=== PATIENT | male | born 1990 | race Hispanic/Latino ===

== ENCOUNTER 2018-10-08 03:24 | Emergency (ER) | payer OTHER ==
[2018-10-08 03:37] VITALS: TEMP 98
--- NOTE | 2018-10-08 04:47 | ED PDOC ---
HPI: Trauma/Fall - HPI Time Seen by Provider: 10/08/18 03:38 Chief Complaint (Nursing): Trauma Chief Complaint (Provider): Trauma History Per: Patient History/Exam Limitations: no limitations Onset/Duration Of Symptoms: Hrs Injury Occurred (Timing): Just Before Arrival Additional Complaint(s): 28 y/o male with no significant PMHx presents to the ED for evaluation of lower extremity pain s/p fall. Patient states he was at work, working on a ladder about 5 to 6 feet above ground when he accidentally lost his balance and fell landing on the heels of his feet. Patient reports he did not land on his back and he did not sustain a head injury. Patient only complaining of pain to the bilateral heels and upper back pain. Patient notes he was able to ambulate after fall. Otherwise, patient additionally denies pelvic pain. PMD: no provider Past Medical History Vital Signs: Last Vital Signs Temp 98 F 10/08/18 03:31 Pulse 85 10/08/18 03:31 Resp 17 10/08/18 03:31 BP 164/120 H 10/08/18 03:31 Pulse Ox 98 10/08/18 03:31 Primary Care Provider: FAMILY PROVIDER,NO - Allergies Allergies/Adverse Reactions: Allergies Allergy/AdvReac Type Severity Reaction Status Date / Time sulfamethoxazole Allergy RASH Verified 10/08/18 03:37 [From Bactrim] trimethoprim [From Bactrim] Allergy RASH Verified 10/08/18 03:37 Review of Systems ROS Statement: Except As Marked, All Systems Reviewed And Found Negative Musculoskeletal: Positive for: Back Pain (upper), Foot Pain (heel pain) Physical Exam - Reviewed Nursing Documentation Reviewed: Yes Vital Signs Reviewed: Yes - Physical Exam Appears: Positive for: No Acute Distress Head Exam: Positive for: ATRAUMATIC, NORMOCEPHALIC Skin: Positive for: Normal Color, Warm, Dry Eye Exam: Positive for: Normal appearance, EOMI, PERRL Neck: Positive for: Normal, Painless ROM Cardiovascular/Chest: Positive for: Regular Rate, Rhythm. Negative for: Murmur Respiratory: Positive for: Normal Breath Sounds. Negative for: Respiratory Distress Gastrointestinal/Abdominal: Positive for: Normal Exam Back: Positive for: Normal Inspection. Negative for: L CVA Tenderness, R CVA Tenderness, Vertebral Tenderness Extremity: Positive for: Normal ROM, Tenderness (Mild tenderness to palpation in the bilateral heels). Negative for: Deformity Neurological/Psych: Positive for: Awake, Alert, Oriented (x3). Negative for: Motor/Sensory Deficits - ECG O2 Sat by Pulse Oximetry: 98 (RA) Pulse Ox Interpretation: Normal Medical Decision Making Medical Decision Making: Time: 353 Impression: Bilateral heel pain and injury Differentials include but not limited to foot fracture Plan: -- Heel 2 View BI XR Scribe Attestation: Documented by Bettye Martinez, acting as a scribe Yoanna Malin MD. Provider Scribe Attestation: All medical record entries made by the Scribe were at my direction and personally dictated by me. I have reviewed the chart and agree that the record accurately reflects my personal performance of the history, physical exam, medical decision making, and the department course for this patient. I have also personally directed, reviewed, and agree with the discharge instructions and disposition. Disposition - Clinical Impression Clinical Impression: Foot injury, Heel pain, bilateral - Patient ED Disposition Is Patient to be Admitted: No Doctor Will See Patient In The: Office Counseled Patient/Family Regarding: Studies Performed, Diagnosis, Need For Followup - Disposition Disposition: Routine/Home Disposition Time: 05:18 Condition: GOOD Additional Instructions: BLAIR JANSEN, thank you for letting us take care of you today. Your provider was Anjali Malin MD and you were treated for FALL. The emergency medical care you received today was directed at your acute symptoms. If you were prescribed any medication, please fill it and take as directed. It may take several days for your symptoms to resolve. Return to the Emergency Department if your symptoms worsen, do not improve, or if you have any other problems. Please contact your doctor or call one of the physicians/clinics you have been referred to that are listed on the Patient Visit Information form that is included in your discharge packet. Bring any paperwork you were given at discharge with you along with any medications you are taking to your follow up visit. Our treatment cannot replace ongoing medical care by a primary care provider outside of the emergency department. Thank you for allowing the [facility] team to be part of your care today. If you had an X-Ray or CT scan: A Radiologist will review the ED reading if any change in treatment is needed we will contact you. Instructions: Foot Sprain (DC)
[2018-10-08 05:29] VITALS: BP 140/82; RESP 16; O2SAT 99
[2018-10-08 05:39] VITALS: PULSE 75
--- NOTE | 2018-10-08 10:15 | RAD ---
Date of service: 10/08/2018 PROCEDURE: HISTORY: heel pain fall COMPARISON: None TECHNIQUE: Three views each heel FINDINGS: No fracture or lytic lesion noted Bone mineralization appears normal. No gross Gail's tendon insertional enesthesophyte. No gross Inferior calcaneal spur . IMPRESSION: Negative
--- NOTE | 2018-10-08 17:54 | CARD ---
APPROVED REPORT Date of service: 10/08/2018 EKG Measurement Heart [id number] <Conclusion> Normal sinus rhythm Moderate voltage criteria for LVH, may be normal variant Early repolarization Borderline ECG
== END 2018-10-08 05:51 | disposition home or self-care (01) ==
LOC: H.ER 03:24
DX: S99.922A Unspecified injury of left foot, initial encounter (principal); S99.921A Unspecified injury of right foot, initial encounter; Y99.0 Civilian activity done for income or pay; W11.XXXA Fall on and from ladder, initial encounter; Z88.1 Allergy status to other antibiotic agents; Z88.2 Allergy status to sulfonamides
CPT/HCPCS: 73650; 93005; 96372; 99285; J1885